=== PATIENT | male | born 1990 | race Caucasian/White ===

== ENCOUNTER 2019-09-03 12:38 | Emergency (ER) | payer OTHER ==
[~2019-09-03] VITALS: Ht 185.4 cm; Wt 99.8 kg
[2019-09-03] MEDS ORDERED: KETO10TA2 PO (14:16)
[2019-09-03] MEDS ORDERED: TOBRAMYCIN-DEXAM5 ML OP (14:16)
[2019-09-03] MEDS ORDERED: SALINE SOLUTIO360 ML (14:22)
== END 2019-09-03 14:32 | disposition home or self-care (01) ==
LOC: ER 12:38
DX: T15.01XA Foreign body in cornea, right eye, initial encounter (principal); W45.8XXA Other foreign body or object entering through skin, initial encounter; Y93.89 Activity, other specified; Y92.89 Other specified places as the place of occurrence of the external cause; Y99.8 Other external cause status

== ENCOUNTER 2022-10-12 05:30 | Day surgery (SDC) | payer OTHER ==
[~2022-10-12] VITALS: Ht 182.9 cm; Wt 97.5 kg
[~2022-10-12 05:30] MED LIST: KETO10TA2 PO; SALINE SOLUTIO360 ML; TOBRAMYCIN-DEXAM5 ML OP
== END 2022-10-12 13:30 | disposition home or self-care (01) ==
LOC: CIR.AMB 05:30
PROVIDERS: ATTEND Surgery
DX: K42.0 Umbilical hernia with obstruction, without gangrene (principal); F17.210 Nicotine dependence, cigarettes, uncomplicated; Z20.822 Contact with and (suspected) exposure to COVID-19